=== PATIENT | female | born 1975 | race Caucasian/White ===

== ENCOUNTER 2021-03-05 17:36 | Outpatient (CLI) | payer BC, SELFPAY ==
--- NOTE | ~2021-03-05 | MM_ITS ---
EXAMINATION: MM screening shanthi BI w maryam HISTORY: Screening TECHNIQUE: Craniocaudal and mediolateral oblique 3-D tomosynthesis images were obtained and synthetic 2-D images were generated. CAD analysis was submitted and interpreted. COMPARISON: 02/05/2016 BREAST PARENCHYMAL COMPOSITION: There are scattered areas of fibroglandular density. FINDINGS: There is no evidence of suspicious mass, calcification, or architectural distortion to sugg est malignancy in either breast. There has been no suspicious interval change. IMPRESSION: 1. No mammographic evidence of malignancy. 2. Recommend routine screening mammography in one year. BI-RADS Category 1: Negative Reviewed, dictated and finalized at location A.
== END 2021-03-05 17:37 | disposition home or self-care (01) ==
LOC: ANHIMG 17:38
PROVIDERS: Visit Provider Obstetrics & Gynecology
DX: Z12.31 Encounter for screening mammogram for malignant neoplasm of breast (principal)
CPT/HCPCS: 77063; 77067

== ENCOUNTER 2022-06-24 17:41 | Outpatient (CLI) | payer BC, SELFPAY ==
--- NOTE | ~2022-06-24 | MM_ITS ---
EXAMINATION: MM screening shanthi BI w maryam HISTORY: Screening TECHNIQUE: Craniocaudal and mediolateral oblique 3-D tomosynthesis images were obtained and synthetic 2-D images were generated. CAD analysis was submitted and interpreted. COMPARISON: Comparison to multiple prior studies sequentially, with oldest reviewed study dated 02/04. BREAST PARENCHYMAL COMPOSITION: Breast composed of scattered areas of fibroglandular density FINDINGS: The left breast is stable without evidence for malignancy. There is a focal asymmetry media lly in the right breast, not well visualized on the MLO view. There is a small mass in the lower oute r quadrant of the right breast, middle third. IMPRESSION: 1. Focal right breast asymmetry medially. Small mass in the lower outer quadrant of the right breast. 2. Additional mammographic views and possible breast ultrasound are recommended. BI-RADS Category 0: Incomplete: Needs additional imaging evaluation. Reviewed, dictated and finalized at location A. IMPRESSION: 1. Focal right breast asymmetry medially. Small mass in the lower outer quadran t of the right breast. 2. Additional mammographic views and possible breast ultrasound are recommended . BI-RADS Category 0: Incomplete: Needs additional imaging evaluation.
== END 2022-06-24 17:42 | disposition home or self-care (01) ==
DX: Z12.31 Encounter for screening mammogram for malignant neoplasm of breast (principal); R92.8 Other abnormal and inconclusive findings on diagnostic imaging of breast
CPT/HCPCS: 77063; 77067